=== PATIENT | male | born 1965 | race Caucasian/White ===

== ENCOUNTER 2017-05-06 15:28 | Outpatient (CLI) | payer OTHER ==
[~2017-05-06 15:28] MED LIST: CETI-1 PO; LISI-222 PO; LORA0.5T PO; MONT10TA21 PO
[2017-05-06] MEDS ORDERED: BUDE10.2 (16:28)
[2017-05-06] MEDS ORDERED: HYDR-565 PO (16:28)
[2017-05-06] MEDS ORDERED: LISI-600 (16:28)
[2017-05-06 16:42] LABS: BASOPHILS % (AUTO) 0.5 % (0-1); EOSINOPHILS # (AUTO) 0.3 X10'3 (0-0.9); EOSINOPHILS % (AUTO) 3.9 % (0-6); LYMPHOCYTES # (AUTO) 2.3 X10'3 (1.1-4.8); LYMPHOCYTES % (AUTO) 29.1 % (21-51); MEAN CORPUSCULAR HEMOGLOBIN 31.8 PG (27.0-31.0); MEAN CORPUSCULAR HGB CONC 34.1 % (33.0-36.5); MEAN CORPUSCULAR VOLUME 93.4 FL (78-98); MEAN PLATELET VOLUME 8.8 FL (7.4-10.4); MONOCYTES # (AUTO) 0.8 X10'3 (0-0.9); MONOCYTES % (AUTO) 10.7 % (2-12); NEUTROPHILS # (AUTO) 4.4 X10'3 (1.8-7.7); NEUTROPHILS % (AUTO) 55.8 % (42-75); PRE OP HEMATOCRIT 43.3 % (42.0-52.0); PRE OP HEMOGLOBIN 14.8 g/dL (14.0-17.9); PRE OP PLATELET COUNT 303 X10'3 (140-440); RED BLOOD COUNT 4.64 X10'6 (4.70-6.10); RED CELL DISTRIBUTION WIDTH 14.7 % (11.5-14.5)
[2017-05-06 16:58] LABS: ALBUMIN 3.4 G/DL (3.4-5.0); ALBUMIN/GLOBULIN RATIO 0.9 (1.1-1.5); ALKALINE PHOSPHATASE 93 IU/L (46-116); BLOOD UREA NITROGEN 11 MG/DL (7-18); CALCIUM 8.7 MG/DL (8.5-10.1); CHLORIDE 107 MMOL/L (99-107); PRE OP ALT 49 U/L (30-65); PRE OP ANION GAP 10 (8-16); PRE OP AST 22 U/L (10-37); PRE OP BILIRUB, TOTAL 0.2 MG/DL (0.0-1.0); PRE OP GLUCOSE 109 MG/DL (70-104); PRE OP POTASSIUM 3.8 MMOL/L (3.4-5.1); PRE OP SODIUM 142 MMOL/L (135-145); TOTAL CARBON DIOXIDE 25.5 MMOL/L (24-32); TOTAL PROTEIN 7.2 G/DL (6.4-8.2); eGFR 70 ML/MIN
== END 2017-05-06 23:59 | disposition home or self-care (01) ==
LOC: PRE-OP 15:28 → EDSTATUS 05-12 13:00
PROVIDERS: ATTEND Orthopaedic Surgery
DX: M17.11 Unilateral primary osteoarthritis, right knee (principal); Z01.810 Encounter for preprocedural cardiovascular examination; Z01.812 Encounter for preprocedural laboratory examination
CPT/HCPCS: 36415; 80053; 85025; 87070; 93005

== ENCOUNTER 2017-09-21 05:27 | Inpatient (IN) | payer OTHER ==
[2017-09-17 12:36] LABS: BASOPHILS # (AUTO) 0.1 X10'3 (0-0.2); BASOPHILS % (AUTO) 0.6 % (0-1); EOSINOPHILS # (AUTO) 0.2 X10'3 (0-0.9); EOSINOPHILS % (AUTO) 2.1 % (0-6); LYMPHOCYTES # (AUTO) 1.4 X10'3 (1.1-4.8); LYMPHOCYTES % (AUTO) 17.2 % (21-51); MEAN CORPUSCULAR HEMOGLOBIN 32.5 PG (27.0-31.0); MEAN CORPUSCULAR HGB CONC 34.1 % (33.0-36.5); MEAN CORPUSCULAR VOLUME 95.3 FL (78-98); MEAN PLATELET VOLUME 9.5 FL (7.4-10.4); MONOCYTES # (AUTO) 0.6 X10'3 (0-0.9); MONOCYTES % (AUTO) 7.6 % (2-12); NEUTROPHILS # (AUTO) 5.8 X10'3 (1.8-7.7); NEUTROPHILS % (AUTO) 72.5 % (42-75); PRE OP HEMATOCRIT 41.6 % (42.0-52.0); PRE OP HEMOGLOBIN 14.2 g/dL (14.0-17.9); PRE OP PLATELET COUNT 308 X10'3 (140-440); RED BLOOD COUNT 4.36 X10'6 (4.70-6.10); RED CELL DISTRIBUTION WIDTH 14.7 % (11.5-14.5)
[2017-09-17 12:55] LABS: CLARITY,URINE CLEAR (Clear); COLOR,URINE YELLOW (Yellow); GLUCOSE, URINE NEGATIVE (Neg); KETONES,URINE NEGATIVE (Neg); LEUKOCYTE ESTERASE ,URINE NEGATIVE (Neg); NITRITES, URINE NEGATIVE (Neg); OCCULT BLOOD,URINE TRACE-INTACT (Neg); PH,URINE 5.5 (4.8-8.0); PROTEIN,URINE NEGATIVE (Neg); UROBILINOGEN,URINE 0.2 E.U/dL (0.2-1.0)
[2017-09-17 12:56] LABS: UA COLLECTION TYPE NON-SPECIFIED
[2017-09-17 12:57] LABS: PRE OP PROTIME 10.3 SECONDS (9.0-12.0)
[2017-09-17 13:07] LABS: BACTERIA,URINE FEW /HPF (Neg); SQUAMOUS EPITHELIAL CELL,UR FEW /LPF (FEW); WBC,URINE 0-4 /HPF (0-4)
[2017-09-17 13:13] LABS: ALBUMIN 3.5 G/DL (3.4-5.0); ALKALINE PHOSPHATASE 111 IU/L (46-116); BLOOD UREA NITROGEN 15 MG/DL (7-18); BUN/CREATININE RATIO 16.9 (5.4-32.0); CALCIUM 8.6 MG/DL (8.5-10.1); CHLORIDE 106 MMOL/L (99-107); CREATININE 0.89 MG/DL (0.60-1.10); PRE OP ALT 42 U/L (30-65); PRE OP ANION GAP 10 (8-16); PRE OP AST 19 U/L (10-37); PRE OP BILIRUB, TOTAL 0.3 MG/DL (0.0-1.0); PRE OP GLUCOSE 141 MG/DL (70-104); PRE OP POTASSIUM 3.7 MMOL/L (3.4-5.1); PRE OP SODIUM 140 MMOL/L (135-145); TOTAL CARBON DIOXIDE 23.9 MMOL/L (24-32); TOTAL PROTEIN 6.9 G/DL (6.4-8.2); eGFR 89 ML/MIN
[~2017-09-21] VITALS: Ht 185.4 cm; Wt 108.9 kg
[2017-09-21] VITALS (20 sets, daily range): BP systolic 104–154; BP diastolic 44–107
[~2017-09-21 05:27] MED LIST changes: +BUDE10.2 INH; -CETI-1 PO; +HYDR-565 PO; -LISI-222 PO; +LISI-600 PO; -LORA0.5T PO; -MONT10TA21 PO; +ringers solution, lacted 1,000 ML IV SCH
[2017-09-21] MEDS ORDERED: tranexamic acid inj. 1,000 MG in normal saline 100ml IV soln 90 ML IV ONE (05:30)
[2017-09-21] MEDS ORDERED: albuterol 2.5 MG/3 ML nebule NEB ONE (05:30)
[2017-09-21] MEDS ORDERED: famotidine 20mg tablet PO ONE (05:30)
[2017-09-21] MEDS ORDERED: oxyCODONE SR 10mg (sust. release) tab -2 tabs (20mg) PO ONE (05:30)
[2017-09-21] MEDS ORDERED: vancomycin inj 1,500 MG in normal saline 300ml IV soln IV ONE (05:30)
[2017-09-21] MEDS ORDERED: metoclopramide 5 mg/ml inj IV ONE (05:30)
[2017-09-21] MEDS ORDERED: celeCOXIB 100mg capsule PO ONE (05:30)
[2017-09-21] MEDS ORDERED: gabapentin 300mg capsule PO ONE (05:30)
[2017-09-21] MEDS ORDERED: Cefazolin 2GM/50ML dext iso,osmotic IVPB IV ONE (05:30)
[2017-09-21] MEDS ORDERED: acetaminophen 325mg tablet PO ONE (05:30)
[2017-09-21] MEDS ORDERED: LIDOcaine 1% (10mg/ml) 2ml vial ONE (05:42)
[2017-09-21] MEDS ORDERED: bisacodyl 10mg suppository rectal RC PRN (06:45)
[2017-09-21] MEDS ORDERED: acetaminophen 325mg tablet PO PRN (06:45)
[2017-09-21] MEDS ORDERED: epiNEPHrine 1 mg/ml inj ONE (06:45)
[2017-09-21] MEDS ORDERED: oxyCODONE/APAP 5-325mg tablet PO PRN (06:45)
[2017-09-21] MEDS ORDERED: magnesium hydroxide 30ml (MOM) UD suspension PO PRN (06:45)
[2017-09-21] MEDS ORDERED: ondansetron/PF 4mg/2ml inj IV PRN ×3 (06:45→08:15)
[2017-09-21] MEDS ORDERED: diphenhydrAMINE 25mg capsule PO PRN ×2 (06:45)
[2017-09-21] MEDS ORDERED: ROPIVAcaine 0.5% (5mg/ml) 30ml vial ONE ×3 (06:45→11:15)
[2017-09-21] MEDS ORDERED: vancomycin 1,000mg inj ONE (06:45)
[2017-09-21] MEDS ORDERED: HYDROmorphone 1 mg/ml syringe IV PRN (06:45)
[2017-09-21] MEDS ORDERED: ketorolac trometh. 30mg/ml inj. ONE (06:45)
[2017-09-21] MEDS ORDERED: cloNIDine hcl/PF 100mcg/ml inj ONE ×2 (06:45→07:11)
[2017-09-21] MEDS ORDERED: diphenhydrAMINE 50 mg/ml inj ONE ×2 (07:07)
[2017-09-21] MEDS ORDERED: tetracaine 1% (10mg/ml) pres. free inj. ONE (07:11)
[2017-09-21] MEDS ORDERED: midazolam 2 mg/2 ml injection ONE ×2 (07:14→07:24)
[2017-09-21] MEDS ORDERED: fentaNYL /PF 50mcg/ml 5ml ampule ONE (07:14)
[2017-09-21] MEDS ORDERED: morphine sulfate /PF 0.5 MG/ML 10mL ampul ONE (07:14)
[2017-09-21] MEDS: ascorbic acid 500mg tablet PO SCH ×2 (08:00→20:14)
[2017-09-21] MEDS ORDERED: non-formulary drug (Budesonide/Formoterol Fumarate (Symbicort 160-4.5 Mcg Inhaler) 1 PUFF) INH SCH (08:00)
[2017-09-21] MEDS: multivitamins, therapeutics tablet PO SCH (08:00)
[2017-09-21] MEDS ORDERED: dexamethasone sod phosphate 4mg/ml inj. ONE (08:08)
[2017-09-21] MEDS ORDERED: propofol inj 20 ML IV ONE ×2 (08:08→08:19)
[2017-09-21] MEDS ORDERED: ringers solution, lacted 1,000 ML IV SCH (08:13)
[2017-09-21] MEDS ORDERED: naloxone 2mg/2ml inj 2 MG in normal saline 500ml IV soln 500 ML IV PRN (08:13)
[2017-09-21] MEDS ORDERED: meperidine/PF 25mg/ml syringe IV PRN ×3 (08:15)
[2017-09-21] MEDS ORDERED: morphine 4 MG/ML inj SYRINge IV PRN ×2 (08:15)
[2017-09-21] MEDS ORDERED: proCHLORperazine 10 MG/2 ml inj IV PRN (08:15)
[2017-09-21] MEDS ORDERED: diphenhydrAMINE 50 mg/ml inj IV PRN (08:15)
[2017-09-21] MEDS ORDERED: LIDOcaine 1%/PF 5ML 10 MG/ML VIAL ONE (08:31)
[2017-09-21] MEDS: albuterol 2.5 MG/3 ML nebule NEB SCH ×4 (12:00→20:25)
[2017-09-21] MEDS: gabapentin 300mg capsule PO SCH ×2 (13:55→20:14)
[2017-09-21] MEDS: potassium cl 20mEq in 1/2 NS 1,000 ML IV SCH ×2 (13:56→20:15)
[2017-09-21] MEDS: cefazolin/dext.iso 2gm/50ml 50 ML IV SCH ×2 (17:54→23:25)
[2017-09-21] MEDS: oxyCODONE/APAP 10/325mg tablet PO PRN ×2 (18:57→23:25)
[2017-09-21] MEDS: sennosides 8.6mg tablet PO SCH (20:14)
[2017-09-21] MEDS: celeCOXIB 100mg capsule PO SCH (20:14)
[2017-09-21] MEDS: budesonide 0.5mg/2ml UD nebule IH SCH (20:25)
[2017-09-22] MEDS: potassium cl 20mEq in 1/2 NS 1,000 ML IV SCH ×3 (01:34→19:24)
[2017-09-22 01:54] VITALS: BP 131/75
[2017-09-22] MEDS: oxyCODONE/APAP 10/325mg tablet PO PRN ×3 (05:30→16:28)
[2017-09-22 06:00] VITALS: BP 149/85
[2017-09-22 06:05] LABS: BASOPHILS % (AUTO) 0.1 % (0-1); EOSINOPHILS # (AUTO) 0.3 X10'3 (0-0.9); EOSINOPHILS % (AUTO) 2.6 % (0-6); HEMATOCRIT 35.1 % (42.0-52.0); HEMOGLOBIN 11.8 g/dl (14.0-17.9); LYMPHOCYTES # (AUTO) 1.1 X10'3 (1.1-4.8); LYMPHOCYTES % (AUTO) 8.8 % (21-51); MEAN CORPUSCULAR HGB CONC 33.5 % (33.0-36.5); MEAN CORPUSCULAR VOLUME 95.4 FL (78-98); MONOCYTES # (AUTO) 0.8 X10'3 (0-0.9); MONOCYTES % (AUTO) 6.3 % (2-12); NEUTROPHILS # (AUTO) 10.4 X10'3 (1.8-7.7); NEUTROPHILS % (AUTO) 82.2 % (42-75); PLATELET COUNT 219 X10'3 (140-440); RED BLOOD COUNT 3.68 X10'6 (4.70-6.10); RED CELL DISTRIBUTION WIDTH 14.8 % (11.5-14.5); WHITE BLOOD COUNT 12.7 X10'3 (4.5-11.0)
[2017-09-22 06:13] LABS: ANION GAP 7 (8-16); CHLORIDE 110 MMOL/L (99-107); POTASSIUM 4.2 MMOL/L (3.5-5.1); SODIUM 140 MMOL/L (135-145); TOTAL CARBON DIOXIDE 23.4 MMOL/L (24-32)
[2017-09-22] MEDS: budesonide 0.5mg/2ml UD nebule IH SCH ×2 (07:01→20:02)
[2017-09-22] MEDS: albuterol 2.5 MG/3 ML nebule NEB SCH ×4 (07:01→20:02)
[2017-09-22] MEDS: lisinopril 20mg tablet PO SCH (07:57)
[2017-09-22] MEDS: ascorbic acid 500mg tablet PO SCH ×2 (07:57→20:32)
[2017-09-22] MEDS: gabapentin 300mg capsule PO SCH ×3 (07:58→20:32)
[2017-09-22] MEDS: aspirin 325mg tablet PO SCH (07:58)
[2017-09-22] MEDS: multivitamins, therapeutics tablet PO SCH (07:58)
[2017-09-22] MEDS: celeCOXIB 100mg capsule PO SCH ×2 (07:59→20:32)
[2017-09-22] MEDS ORDERED: lisinopril 20mg tablet PO SCH (08:00)
[2017-09-22] MEDS: HYDROmorphone 1 mg/ml syringe IV PRN ×4 (08:07→20:33)
[2017-09-22 10:00] VITALS: BP 127/65
[2017-09-22 14:00] VITALS: BP 153/73
[2017-09-22 18:00] VITALS: BP 158/89
[2017-09-22] MEDS: sennosides 8.6mg tablet PO SCH (20:32)
[2017-09-22 22:32] VITALS: BP 165/86
[2017-09-23] MEDS: HYDROmorphone 1 mg/ml syringe IV PRN ×2 (00:30→04:28)
[2017-09-23 05:52] LABS: BASOPHILS % (AUTO) 0.3 % (0-1); EOSINOPHILS # (AUTO) 0.1 X10'3 (0-0.9); EOSINOPHILS % (AUTO) 0.8 % (0-6); HEMATOCRIT 35.7 % (42.0-52.0); HEMOGLOBIN 11.9 g/dl (14.0-17.9); LYMPHOCYTES % (AUTO) 8.3 % (21-51); MEAN CORPUSCULAR HEMOGLOBIN 31.8 PG (27.0-31.0); MEAN CORPUSCULAR HGB CONC 33.3 % (33.0-36.5); MEAN CORPUSCULAR VOLUME 95.6 FL (78-98); MEAN PLATELET VOLUME 9.3 FL (7.4-10.4); MONOCYTES # (AUTO) 1.2 X10'3 (0-0.9); MONOCYTES % (AUTO) 10.2 % (2-12); NEUTROPHILS # (AUTO) 9.6 X10'3 (1.8-7.7); NEUTROPHILS % (AUTO) 80.4 % (42-75); PLATELET COUNT 212 X10'3 (140-440); RED BLOOD COUNT 3.73 X10'6 (4.70-6.10); RED CELL DISTRIBUTION WIDTH 14.5 % (11.5-14.5)
[2017-09-23 06:00] VITALS: BP 180/94
[2017-09-23] MEDS: albuterol 2.5 MG/3 ML nebule NEB SCH ×4 (07:00→19:00)
[2017-09-23] MEDS ORDERED: morphine 5 MG/ML injection IV PRN (07:05)
[2017-09-23] MEDS: multivitamins, therapeutics tablet PO SCH (07:10)
[2017-09-23] MEDS: celeCOXIB 100mg capsule PO SCH ×2 (07:10→19:29)
[2017-09-23] MEDS: lisinopril 20mg tablet PO SCH (07:10)
[2017-09-23] MEDS: ascorbic acid 500mg tablet PO SCH ×2 (07:11→19:29)
[2017-09-23] MEDS: oxyCODONE/APAP 10/325mg tablet PO PRN ×5 (07:11→23:34)
[2017-09-23] MEDS: gabapentin 300mg capsule PO SCH ×3 (07:11→20:58)
[2017-09-23] MEDS: budesonide 0.5mg/2ml UD nebule IH SCH ×2 (07:52→20:00)
[2017-09-23] MEDS: aspirin 325mg tablet PO SCH (08:21)
[2017-09-23] MEDS: morphine 4 MG/ML inj SYRINge IV PRN ×4 (08:21→20:59)
[2017-09-23 10:00] VITALS: BP 161/89
[2017-09-23 18:00] VITALS: BP 128/84
[2017-09-23] MEDS: sennosides 8.6mg tablet PO SCH (21:00)
[2017-09-23 22:00] VITALS: BP 121/66
[2017-09-24] MEDS: oxyCODONE/APAP 10/325mg tablet PO PRN ×3 (03:58→12:25)
[2017-09-24] MEDS: morphine 4 MG/ML inj SYRINge IV PRN ×3 (05:25→13:49)
[2017-09-24 06:00] VITALS: BP 128/80
[2017-09-24 06:33] LABS: BASOPHILS # (AUTO) 0.1 X10'3 (0-0.2); BASOPHILS % (AUTO) 0.5 % (0-1); EOSINOPHILS # (AUTO) 0.3 X10'3 (0-0.9); EOSINOPHILS % (AUTO) 2.8 % (0-6); HEMATOCRIT 36.7 % (42.0-52.0); HEMOGLOBIN 12.4 g/dl (14.0-17.9); LYMPHOCYTES # (AUTO) 1.8 X10'3 (1.1-4.8); LYMPHOCYTES % (AUTO) 14.1 % (21-51); MEAN CORPUSCULAR HEMOGLOBIN 32.5 PG (27.0-31.0); MEAN CORPUSCULAR HGB CONC 33.7 % (33.0-36.5); MEAN CORPUSCULAR VOLUME 96.5 FL (78-98); MEAN PLATELET VOLUME 9.6 FL (7.4-10.4); MONOCYTES # (AUTO) 1.3 X10'3 (0-0.9); NEUTROPHILS # (AUTO) 9.1 X10'3 (1.8-7.7); NEUTROPHILS % (AUTO) 72.6 % (42-75); PLATELET COUNT 238 X10'3 (140-440); RED CELL DISTRIBUTION WIDTH 14.9 % (11.5-14.5); WHITE BLOOD COUNT 12.6 X10'3 (4.5-11.0)
[2017-09-24] MEDS: albuterol 2.5 MG/3 ML nebule NEB SCH ×2 (07:00→11:00)
[2017-09-24] MEDS: lisinopril 20mg tablet PO SCH (08:23)
[2017-09-24] MEDS: gabapentin 300mg capsule PO SCH ×2 (08:23→13:05)
[2017-09-24] MEDS: ascorbic acid 500mg tablet PO SCH (08:23)
[2017-09-24] MEDS: aspirin 325mg tablet PO SCH (08:23)
[2017-09-24] MEDS: celeCOXIB 100mg capsule PO SCH (08:23)
[2017-09-24] MEDS: multivitamins, therapeutics tablet PO SCH (08:24)
[2017-09-24] MEDS: budesonide 0.5mg/2ml UD nebule IH SCH (09:00)
== END 2017-09-24 14:30 | disposition home or self-care (01) | DRG 470 ==
LOC: PAS IN 05:27 → EDSTATUS 07:30 → ORTHO 4S 11:19
PROVIDERS: ADMIT Orthopaedic Surgery; ATTEND Orthopaedic Surgery
PROC: 3E0T3BZ Introduction of Anesthetic Agent into Peripheral Nerves and Plexi, Percutaneous Approach (ICD-10-PCS; 2017-09-21)
PROC: 0SRC0J9 Replacement of Right Knee Joint with Synthetic Substitute, Cemented, Open Approach (ICD-10-PCS; principal; 2017-09-21 07:07)
DX: M17.11 Unilateral primary osteoarthritis, right knee (principal); M25.761 Osteophyte, right knee; M21.161 Varus deformity, not elsewhere classified, right knee; I10 Essential (primary) hypertension; J45.909 Unspecified asthma, uncomplicated; E66.9 Obesity, unspecified; F17.200 Nicotine dependence, unspecified, uncomplicated; Z79.51 Long term (current) use of inhaled steroids; Z79.82 Long term (current) use of aspirin; Z79.899 Other long term (current) drug therapy; Z68.31 Body mass index [BMI] 31.0-31.9, adult
CPT/HCPCS: 36415; 71046; 73560; 80051; 80053; 81001; 85025; 85610; 85730; 86885; 86900; 86901; 87070; 94640; 94760; 97110; 97116; 97161; 97530; A6455; A7000; C1713; C1758; C1776; J0171; J0690; J0735; J1100; J1170; J1200; J1885; J2001; J2250; J2270; J2274; J2704; J2765; J2795; J3010; J3370; J3490; J7030; J7120; J7626; Q0163

== ENCOUNTER 2018-01-04 05:25 | Inpatient (IN) | payer MEDICAID ==
[2017-12-29 16:39] LABS: BASOPHILS # (AUTO) 0.1 X10'3 (0-0.2); BASOPHILS % (AUTO) 0.5 % (0-1); EOSINOPHILS # (AUTO) 0.2 X10'3 (0-0.9); EOSINOPHILS % (AUTO) 2.1 % (0-6); LYMPHOCYTES # (AUTO) 2.1 X10'3 (1.1-4.8); LYMPHOCYTES % (AUTO) 18.3 % (21-51); MEAN CORPUSCULAR HEMOGLOBIN 29.4 PG (27.0-31.0); MEAN CORPUSCULAR HGB CONC 32.4 % (33.0-36.5); MEAN CORPUSCULAR VOLUME 90.8 FL (78-98); MEAN PLATELET VOLUME 9.4 FL (7.4-10.4); MONOCYTES # (AUTO) 0.8 X10'3 (0-0.9); MONOCYTES % (AUTO) 6.6 % (2-12); NEUTROPHILS # (AUTO) 8.4 X10'3 (1.8-7.7); NEUTROPHILS % (AUTO) 72.5 % (42-75); PRE OP HEMATOCRIT 47.7 % (42.0-52.0); PRE OP HEMOGLOBIN 15.5 g/dL (14.0-17.9); PRE OP PLATELET COUNT 328 X10'3 (140-440); RED BLOOD COUNT 5.26 X10'6 (4.70-6.10); RED CELL DISTRIBUTION WIDTH 14.9 % (11.5-14.5)
[2017-12-29 16:40] LABS: CLARITY,URINE SLIGHTLY CLOUDY (Clear); COLOR,URINE YELLOW (Yellow); GLUCOSE, URINE NEGATIVE (Neg); KETONES,URINE NEGATIVE (Neg); LEUKOCYTE ESTERASE ,URINE TRACE (Neg); NITRITES, URINE NEGATIVE (Neg); OCCULT BLOOD,URINE NEGATIVE (Neg); PROTEIN,URINE NEGATIVE (Neg); UROBILINOGEN,URINE 0.2 E.U/dL (0.2-1.0)
[2017-12-29 16:46] LABS: UA COLLECTION TYPE CLN CATCH MIDSTREAM
[2017-12-29 16:47] LABS: BACTERIA,URINE FEW /HPF (Neg); MUCUS STRANDS FEW /LPF (Neg); RBC,URINE 0-2 /HPF (0-2); SQUAMOUS EPITHELIAL CELL,UR FEW /LPF (FEW); WBC,URINE 0-4 /HPF (0-4)
[2017-12-29 17:00] LABS: ALBUMIN 3.8 G/DL (3.4-5.0); ALKALINE PHOSPHATASE 104 IU/L (46-116); BLOOD UREA NITROGEN 13 MG/DL (7-18); BUN/CREATININE RATIO 12.1 (5.4-32.0); CALCIUM 8.7 MG/DL (8.5-10.1); CHLORIDE 102 MMOL/L (99-107); CREATININE 1.07 MG/DL (0.60-1.10); PRE OP ALT 50 U/L (30-65); PRE OP ANION GAP 10 (8-16); PRE OP AST 26 U/L (10-37); PRE OP BILIRUB, TOTAL 0.3 MG/DL (0.0-1.0); PRE OP GLUCOSE 99 MG/DL (70-104); PRE OP POTASSIUM 3.7 MMOL/L (3.4-5.1); PRE OP SODIUM 139 MMOL/L (135-145); TOTAL CARBON DIOXIDE 27.4 MMOL/L (24-32); TOTAL PROTEIN 7.7 G/DL (6.4-8.2); eGFR 72 ML/MIN
[2018-01-04] VITALS (22 sets, daily range): BP systolic 81–136; BP diastolic 36–88
[~2018-01-04] VITALS: Ht 182.9 cm; Wt 110.4 kg
[~2018-01-04 05:25] MED LIST changes: +HYDR-3972 PO; -HYDR-565 PO
[2018-01-04] MEDS ORDERED: famotidine 20mg tablet PO ONE (05:30)
[2018-01-04] MEDS ORDERED: oxyCODONE SR 10mg (sust. release) tab -2 tabs (20mg) PO ONE (05:30)
[2018-01-04] MEDS ORDERED: metoclopramide 5 mg/ml inj IV ONE (05:30)
[2018-01-04] MEDS ORDERED: gabapentin 300mg capsule PO ONE (05:30)
[2018-01-04] MEDS ORDERED: acetaminophen 325mg tablet PO ONE (05:30)
[2018-01-04] MEDS ORDERED: vancomycin inj 1,500 MG in normal saline 300ml IV soln IV ONE (05:30)
[2018-01-04] MEDS ORDERED: celeCOXIB 100mg capsule PO ONE (05:30)
[2018-01-04] MEDS ORDERED: tranexamic acid inj. 1,000 MG in normal saline 100ml IV soln 90 ML IV ONE (05:30)
[2018-01-04] MEDS ORDERED: LIDOcaine 1% (10mg/ml) 2ml vial ONE (05:51)
[2018-01-04] MEDS: cefazolin/dext.iso 2gm/100 ML IV ONE ×2 (06:12→06:13)
[2018-01-04] MEDS ORDERED: vancomycin 1,000mg inj ONE (06:53)
[2018-01-04] MEDS ORDERED: LIDOcaine 1%/PF 5ML 10 MG/ML VIAL ONE (07:10)
[2018-01-04] MEDS ORDERED: sevoflurane 250ml liquid IH ONE (07:10)
[2018-01-04] MEDS ORDERED: propofol 10mg/ml 20ml vial IV ONE (07:10)
[2018-01-04] MEDS ORDERED: tetracaine 1% (10mg/ml) pres. free inj. ONE (07:14)
[2018-01-04] MEDS ORDERED: oxyCODONE/APAP 5-325mg tablet PO PRN (07:15)
[2018-01-04] MEDS ORDERED: acetaminophen 325mg tablet PO PRN (07:15)
[2018-01-04] MEDS ORDERED: ondansetron/PF 4mg/2ml inj IV PRN ×3 (07:15→08:25)
[2018-01-04] MEDS ORDERED: diphenhydrAMINE 25mg capsule PO PRN ×2 (07:15)
[2018-01-04] MEDS ORDERED: HYDROmorphone 1 mg/ml syringe IV PRN (07:15)
[2018-01-04] MEDS ORDERED: bisacodyl 10mg suppository rectal RC PRN (07:15)
[2018-01-04] MEDS ORDERED: magnesium hydroxide 30ml (MOM) UD suspension PO PRN (07:15)
[2018-01-04] MEDS ORDERED: fentaNYL/PF 50MCG/1 ML 2ML syringe ONE (07:18)
[2018-01-04] MEDS ORDERED: MIDAZolam 5mg/5ml vial ONE (07:18)
[2018-01-04] MEDS ORDERED: morphine /PF 1mg/ml 10ml inj. ONE (07:18)
[2018-01-04] MEDS ORDERED: ketorolac trometh. 30mg/ml inj. ONE (07:46)
[2018-01-04] MEDS: ascorbic acid 500mg tablet PO SCH ×2 (08:00→20:57)
[2018-01-04] MEDS: multivitamins, therapeutics tablet PO SCH (08:00)
[2018-01-04] MEDS: gabapentin 300mg capsule PO SCH ×3 (08:00→20:57)
[2018-01-04] MEDS: lisinopril 20mg tablet PO SCH (08:00)
[2018-01-04] MEDS ORDERED: non-formulary drug (Budesonide/Formoterol Fumarate (Symbicort 160-4.5 Mcg Inhaler) 1 PUFF) INH SCH (08:00)
[2018-01-04] MEDS ORDERED: naloxone 2mg/2ml inj 2 MG in normal saline 500ml IV soln 500 ML IV PRN (08:24)
[2018-01-04] MEDS ORDERED: ringers solution, lacted 1,000 ML IV SCH (08:24)
[2018-01-04] MEDS ORDERED: proCHLORperazine 10 MG/2 ml inj IV PRN (08:25)
[2018-01-04] MEDS ORDERED: meperidine/PF 25mg/ml syringe IV PRN ×3 (08:25)
[2018-01-04] MEDS ORDERED: diphenhydrAMINE 50 mg/ml inj IV PRN (08:25)
[2018-01-04] MEDS ORDERED: morphine 4 MG/ML inj SYRINge IV PRN ×2 (08:25)
[2018-01-04] MEDS: aspirin 325mg tablet PO SCH (08:30)
[2018-01-04] MEDS ORDERED: cefazolin/dext.iso 2gm/100ml 100 ML IV SCH (11:28)
[2018-01-04] MEDS: potassium cl 20mEq in 1/2 NS 1,000 ML IV SCH ×3 (12:43→23:15)
[2018-01-04] MEDS: oxyCODONE/APAP 10/325mg tablet PO PRN ×3 (12:47→20:58)
[2018-01-04] MEDS: morphine 2 MG/ML inj. syringe IV PRN ×3 (14:02→23:09)
[2018-01-04] MEDS: albuterol 2.5 MG/3 ML nebule NEB SCH ×2 (15:16→20:00)
[2018-01-04] MEDS ORDERED: tranexamic acid inj. 1,000 MG in normal saline 100ml IV soln 100 ML IV ONE (15:30)
[2018-01-04] MEDS ORDERED: cefazolin/dext.iso 2gm/50ml 50 ML IV SCH (16:00)
[2018-01-04] MEDS: cefazolin/dext.iso 2gm/100ml 100 ML IV SCH (17:14)
[2018-01-04] MEDS: budesonide 0.5mg/2ml UD nebule IH SCH (20:00)
[2018-01-04] MEDS: sennosides 8.6mg tablet PO SCH (20:58)
[2018-01-05] MEDS: cefazolin/dext.iso 2gm/100ml 100 ML IV SCH ×2 (00:33→07:34)
[2018-01-05] MEDS: oxyCODONE/APAP 10/325mg tablet PO PRN ×6 (01:21→22:14)
[2018-01-05 02:00] VITALS: BP 132/72
[2018-01-05] MEDS: morphine 2 MG/ML inj. syringe IV PRN ×3 (03:19→11:38)
[2018-01-05 06:00] VITALS: BP 134/74
[2018-01-05] MEDS ORDERED: ROPIVAcaine inj 250 MG, CloNIDine/PF inj 80 MCG, epiNEPHrine inj 0.5 MG in normal salin... IU ONE (06:55)
[2018-01-05] MEDS: albuterol 2.5 MG/3 ML nebule NEB SCH ×2 (07:00→11:00)
[2018-01-05] MEDS: gabapentin 300mg capsule PO SCH ×3 (07:32→20:14)
[2018-01-05] MEDS: ascorbic acid 500mg tablet PO SCH ×2 (07:32→20:14)
[2018-01-05] MEDS: lisinopril 20mg tablet PO SCH (07:33)
[2018-01-05] MEDS: multivitamins, therapeutics tablet PO SCH (07:33)
[2018-01-05] MEDS: potassium cl 20mEq in 1/2 NS 1,000 ML IV SCH ×3 (07:34→23:13)
[2018-01-05 07:50] LABS: BASOPHILS % (AUTO) 0.1 % (0-1); EOSINOPHILS # (AUTO) 0.3 X10'3 (0-0.9); EOSINOPHILS % (AUTO) 3.5 % (0-6); HEMATOCRIT 34.7 % (42.0-52.0); HEMOGLOBIN 11.4 g/dl (14.0-17.9); LYMPHOCYTES # (AUTO) 1.1 X10'3 (1.1-4.8); LYMPHOCYTES % (AUTO) 11.8 % (21-51); MEAN CORPUSCULAR HGB CONC 32.9 % (33.0-36.5); MEAN CORPUSCULAR VOLUME 91.1 FL (78-98); MEAN PLATELET VOLUME 9.3 FL (7.4-10.4); MONOCYTES # (AUTO) 1.1 X10'3 (0-0.9); MONOCYTES % (AUTO) 11.9 % (2-12); NEUTROPHILS # (AUTO) 6.9 X10'3 (1.8-7.7); NEUTROPHILS % (AUTO) 72.7 % (42-75); PLATELET COUNT 233 X10'3 (140-440); RED BLOOD COUNT 3.81 X10'6 (4.70-6.10); RED CELL DISTRIBUTION WIDTH 15.3 % (11.5-14.5); WHITE BLOOD COUNT 9.6 X10'3 (4.5-11.0)
[2018-01-05] MEDS: aspirin 325mg tablet PO SCH (08:30)
[2018-01-05] MEDS: budesonide 0.5mg/2ml UD nebule IH SCH (09:00)
[2018-01-05 09:22] LABS: ANION GAP 7 (8-16); CHLORIDE 104 MMOL/L (99-107); POTASSIUM 4.5 MMOL/L (3.5-5.1); SODIUM 139 MMOL/L (135-145)
[2018-01-05] MEDS ORDERED: ASPI-1 PO (09:31)
[2018-01-05 10:00] VITALS: BP 137/67
[2018-01-05 14:00] VITALS: BP 144/77
[2018-01-05] MEDS: HYDROmorphone 1 mg/ml syringe IV PRN ×2 (16:12→20:30)
[2018-01-05 18:00] VITALS: BP 156/87
[2018-01-05] MEDS: sennosides 8.6mg tablet PO SCH (20:14)
[2018-01-05 22:00] VITALS: BP 158/88
[2018-01-06] MEDS: oxyCODONE/APAP 10/325mg tablet PO PRN ×3 (01:44→11:12)
[2018-01-06] MEDS: HYDROmorphone 1 mg/ml syringe IV PRN ×3 (05:02→13:10)
[2018-01-06 06:00] VITALS: BP 124/78
[2018-01-06 06:18] LABS: BASOPHILS # (AUTO) 0.1 X10'3 (0-0.2); BASOPHILS % (AUTO) 1.2 % (0-1); EOSINOPHILS # (AUTO) 0.4 X10'3 (0-0.9); EOSINOPHILS % (AUTO) 3.2 % (0-6); HEMATOCRIT 36.2 % (42.0-52.0); HEMOGLOBIN 11.8 g/dl (14.0-17.9); LYMPHOCYTES # (AUTO) 1.4 X10'3 (1.1-4.8); LYMPHOCYTES % (AUTO) 12.8 % (21-51); MEAN CORPUSCULAR HEMOGLOBIN 29.9 PG (27.0-31.0); MEAN CORPUSCULAR HGB CONC 32.5 % (33.0-36.5); MEAN CORPUSCULAR VOLUME 91.8 FL (78-98); MEAN PLATELET VOLUME 9.6 FL (7.4-10.4); MONOCYTES # (AUTO) 1.5 X10'3 (0-0.9); MONOCYTES % (AUTO) 13.1 % (2-12); NEUTROPHILS # (AUTO) 7.8 X10'3 (1.8-7.7); NEUTROPHILS % (AUTO) 69.7 % (42-75); PLATELET COUNT 272 X10'3 (140-440); RED BLOOD COUNT 3.95 X10'6 (4.70-6.10); RED CELL DISTRIBUTION WIDTH 15.7 % (11.5-14.5); WHITE BLOOD COUNT 11.2 X10'3 (4.5-11.0)
[2018-01-06] MEDS: aspirin 325mg tablet PO SCH (06:57)
[2018-01-06] MEDS: multivitamins, therapeutics tablet PO SCH (07:00)
[2018-01-06] MEDS: gabapentin 300mg capsule PO SCH ×2 (07:00→13:09)
[2018-01-06] MEDS: lisinopril 20mg tablet PO SCH (07:00)
[2018-01-06] MEDS: ascorbic acid 500mg tablet PO SCH (07:00)
[2018-01-06] MEDS: albuterol 2.5 MG/3 ML nebule NEB SCH (08:36)
[2018-01-06] MEDS: budesonide 0.5mg/2ml UD nebule IH SCH (08:36)
[2018-01-06 10:00] VITALS: BP 111/56
== END 2018-01-06 13:45 | disposition home or self-care (01) | DRG 301 ==
LOC: PAS IN 05:25 → EDSTATUS 07:30 → ORTHO 4S 10:45
PROVIDERS: ADMIT Orthopaedic Surgery; ATTEND Orthopaedic Surgery
PROC: 0SR906Z Replacement of Right Hip Joint with Oxidized Zirconium on Polyethylene Synthetic Substitute, Open Approach (ICD-10-PCS; principal; 2018-01-04 07:10)
DX: M16.11 Unilateral primary osteoarthritis, right hip (principal); D62 Acute posthemorrhagic anemia; Z96.651 Presence of right artificial knee joint; J45.909 Unspecified asthma, uncomplicated; I10 Essential (primary) hypertension; Z79.82 Long term (current) use of aspirin; Z79.899 Other long term (current) drug therapy; Z84.89 Family history of other specified conditions; Z72.89 Other problems related to lifestyle
CPT/HCPCS: 36415; 72170; 80051; 80053; 81001; 85025; 86885; 86900; 86901; 87070; 87088; 94640; 94760; 97110; 97116; 97161; 97530; A4615; A7000; C1758; C1776; G0378; J0171; J0690; J0735; J1170; J1885; J2001; J2250; J2270; J2274; J2704; J2765; J2795; J3010; J3370; J3490; J7030; J7120

== ENCOUNTER 2019-10-08 19:13 | Emergency (ER) | payer SELFPAY ==
[~2019-10-08] VITALS: Ht 182.9 cm; Wt 95.3 kg
[~2019-10-08 19:13] MED LIST changes: +ASPI-1 PO; -ringers solution, lacted 1,000 ML IV SCH
[2019-10-08] MEDS ORDERED: cephalexin 250mg capsule PO ONE (21:25)
[2019-10-08] MEDS ORDERED: acetaminophen 325mg tablet PO ONE (21:25)
[2019-10-08] MEDS ORDERED: CEPH-572 PO (21:27)
[2019-10-08 21:41] VITALS: BP 118/78
[2019-10-09] MEDS ORDERED: albuterol 2.5 MG/3 ML nebule NEB ONE ×2 (08:55→12:00)
== END 2019-10-08 21:42 | disposition home or self-care (01) ==
LOC: ER 19:15
DX: M70.20 Olecranon bursitis, unspecified elbow (principal); I10 Essential (primary) hypertension; J45.909 Unspecified asthma, uncomplicated; F41.9 Anxiety disorder, unspecified; Z98.890 Other specified postprocedural states; Z88.2 Allergy status to sulfonamides; Z79.82 Long term (current) use of aspirin; Z79.2 Long term (current) use of antibiotics; Z79.899 Other long term (current) drug therapy; Y93.89 Activity, other specified
CPT/HCPCS: 99283

== ENCOUNTER 2020-01-05 12:12 | Inpatient (IN) | payer OTHER ==
[~2020-01-05] VITALS: Ht 185.4 cm; Wt 122.0 kg
--- NOTE | 2020-01-05 13:35 | NUR ---
Pt requested to stay in his personal clothing rather than getting into a hospital gown.
--- NOTE | 2020-01-05 14:11 | NUR ---
Pt transported to CT scan via w/c at this time.
--- NOTE | 2020-01-05 14:18 | NUR ---
Return from CT scan via w/c. Test results pending.
[2020-01-05 14:31] LABS: BASOPHILS # (AUTO) 0.1 X10'3 (0-0.2); BASOPHILS % (AUTO) 0.3 % (0-1); EOSINOPHILS # (AUTO) 0.1 X10'3 (0-0.9); EOSINOPHILS % (AUTO) 0.5 % (0-6); HEMATOCRIT 39.3 % (42.0-52.0); HEMOGLOBIN 12.7 g/dl (14.0-17.9); LYMPHOCYTES % (AUTO) 4.3 % (21-51); MEAN CORPUSCULAR HEMOGLOBIN 28.6 PG (27.0-31.0); MEAN CORPUSCULAR HGB CONC 32.3 g/dL (33.0-36.5); MEAN CORPUSCULAR VOLUME 88.8 FL (78-98); MEAN PLATELET VOLUME 9.2 FL (7.4-10.4); MONOCYTES # (AUTO) 1.9 X10'3 (0-0.9); MONOCYTES % (AUTO) 7.9 % (2-12); NEUTROPHILS # (AUTO) 21.2 X10'3 (1.8-7.7); PLATELET COUNT 334 X10'3 (140-440); RED BLOOD COUNT 4.42 X10'6 (4.70-6.10); RED CELL DISTRIBUTION WIDTH 15.1 % (11.5-14.5); WHITE BLOOD COUNT 24.3 X10'3 (4.5-11.0)
[2020-01-05 14:47] LABS: ALANINE AMINOTRANSFERASE 37 U/L (12-78); ALBUMIN 3.4 G/DL (3.4-5.0); ALKALINE PHOSPHATASE 110 IU/L (46-116); ANION GAP 6 (8-16); ASPARTATE AMINO TRANSFERASE 21 U/L (10-37); BILIRUBIN,TOTAL 0.8 MG/DL (0.1-1.0); BLOOD UREA NITROGEN 15 MG/DL (7-18); CALCIUM 8.6 MG/DL (8.5-10.1); CHLORIDE 104 MMOL/L (99-107); GLUCOSE 139 MG/DL (70-104); POTASSIUM 4.2 MMOL/L (3.5-5.1); SODIUM 137 MMOL/L (135-145); TOTAL CARBON DIOXIDE 27.5 MMOL/L (24-32); TOTAL PROTEIN 6.9 G/DL (6.4-8.2); eGFR 78 ML/MIN
[2020-01-05 15:01] LABS: TOTAL CELLS COUNTED 100
[2020-01-05 15:02] LABS: LARGE PLATELETS FEW; PLATELET ESTIMATE NORMAL
[2020-01-05] MEDS ORDERED: morphine 4 MG/ML inj SYRINge IV ONE (15:30)
[2020-01-05] MEDS ORDERED: ondansetron/PF 4mg/2ml inj IV ONE (15:30)
[2020-01-05] MEDS ORDERED: HYDR-4353 PO (15:48)
[2020-01-05] MEDS ORDERED: ASPI325T88 PO (15:48)
[2020-01-05] MEDS ORDERED: FERR324T PO (15:48)
[2020-01-05 15:49] LABS: PARTIAL THROMBOPLASTIN TIME 26 SECONDS (22-32)
[2020-01-05] MEDS ORDERED: magnesium 4gm in 100ml NS 100 ML IV PRN (16:15)
[2020-01-05] MEDS ORDERED: potassium Cl 20 mEq SR tablet PO PRN ×2 (16:15)
[2020-01-05] MEDS ORDERED: potassium CL 10mEq/100ml bag 100 ML IV PRN ×2 (16:15)
[2020-01-05] MEDS ORDERED: magnesium Cl slow-release 64mg tablet PO PRN (16:15)
[2020-01-05] MEDS ORDERED: magnesium 2GM in 50ml NS 50 ML IV PRN (16:15)
[2020-01-05] MEDS ORDERED: ondansetron/PF 4mg/2ml inj IV PRN (16:15)
[2020-01-05] MEDS ORDERED: morphine 2 MG/ML inj. syringe IV PRN (16:15)
[2020-01-05] MEDS ORDERED: acetaminophen 325mg tablet PO PRN ×2 (16:15)
[2020-01-05] MEDS ORDERED: HYDROcodone/acetaminophen 5mg/325mg tablet PO PRN (16:15)
--- NOTE | 2020-01-05 16:24 | NUR ---
Pt again asked to get into a hospital gown and he reports he wants to stay in his personal clothing.
[2020-01-05] MEDS ORDERED: iohexol 300mg/ml 100ml inj. ONE (16:29)
[2020-01-05 17:00] LABS: ETHANOL < 0.010 GM/DL (0.0-0.010)
[2020-01-05 18:10] LABS: CLARITY,URINE CLEAR (Clear); COLOR,URINE YELLOW (Yellow); GLUCOSE, URINE NEGATIVE (Neg); KETONES,URINE NEGATIVE (Neg); LEUKOCYTE ESTERASE ,URINE NEGATIVE (Neg); NITRITES, URINE NEGATIVE (Neg); OCCULT BLOOD,URINE LARGE (Neg); PROTEIN,URINE NEGATIVE (Neg); UROBILINOGEN,URINE 0.2 E.U/dL (0.2-1.0)
[2020-01-05 18:12] LABS: UA COLLECTION TYPE CLN CATCH MIDSTREAM
[2020-01-05 18:15] LABS: BACTERIA,URINE NONE SEEN /HPF (Neg); SQUAMOUS EPITHELIAL CELL,UR FEW /LPF (FEW); WBC,URINE 0-4 /HPF (0-4)
[2020-01-05] MEDS: normal saline 1000ml 1,000 ML IV SCH (18:15)
[2020-01-05] MEDS: VANCOmycin 1250MG/NS 250ml Bag 250 ML IV SCH (18:15)
[2020-01-05 18:27] LABS: URINE AMPHETAMINE SCREEN POSITIVE (Neg); URINE BARBITUATE SCREEN NEGATIVE (Neg); URINE BENZODIAZEPINES SCREEN NEGATIVE (Neg); URINE CANNABINOID SCREEN NEGATIVE (Neg); URINE COCAINE SCREEN POSITIVE (Neg); URINE METHADONE SCREEN NEGATIVE (Neg); URINE OPIATE SCREEN POSITIVE (Neg); URINE PHENCYCLIDINE SCREEN NEGATIVE (Neg)
[2020-01-05] MEDS: morphine 2 MG/ML inj. syringe IV PRN (19:19)
--- NOTE | 2020-01-05 19:30 | NUR ---
Received report from Rian FARLEY from ED. Patient came up to the floor via gurney. Patient able to help get into bed. Bed placed in low and locked position. Call light placed within reach and educated on.
[2020-01-05 19:50] VITALS: BP 111/71
[2020-01-05] MEDS: K and/or MAG REPLACEMENT MC SCH (20:00)
[2020-01-05] MEDS: budesonide 0.5mg/2ml UD nebule IH SCH (20:33)
[2020-01-05] MEDS: HYDROcodone/acetaminophen 10/325mg tab PO PRN (20:47)
[2020-01-05 22:00] VITALS: BP 120/66
[2020-01-06] MEDS: piperacillin/tazo 3.375gm/50ml 50 ML IV SCH ×3 (00:30→16:27)
[2020-01-06] MEDS: normal saline 1000ml 1,000 ML IV SCH ×2 (03:10→15:05)
[2020-01-06] MEDS: HYDROcodone/acetaminophen 10/325mg tab PO PRN (03:10)
[2020-01-06] MEDS: morphine 2 MG/ML inj. syringe IV PRN ×5 (04:42→23:13)
[2020-01-06] MEDS: VANCOmycin 1250MG/NS 250ml Bag 250 ML IV SCH ×2 (04:44→17:26)
[2020-01-06 06:09] LABS: BASOPHILS # (AUTO) 0.1 X10'3 (0-0.2); BASOPHILS % (AUTO) 0.4 % (0-1); EOSINOPHILS # (AUTO) 0.4 X10'3 (0-0.9); EOSINOPHILS % (AUTO) 2.5 % (0-6); HEMATOCRIT 34.2 % (42.0-52.0); LYMPHOCYTES # (AUTO) 1.2 X10'3 (1.1-4.8); LYMPHOCYTES % (AUTO) 7.9 % (21-51); MEAN CORPUSCULAR HGB CONC 32.3 g/dL (33.0-36.5); MEAN CORPUSCULAR VOLUME 89.6 FL (78-98); MEAN PLATELET VOLUME 9.3 FL (7.4-10.4); MONOCYTES # (AUTO) 1.1 X10'3 (0-0.9); NEUTROPHILS # (AUTO) 12.5 X10'3 (1.8-7.7); NEUTROPHILS % (AUTO) 82.2 % (42-75); PLATELET COUNT 303 X10'3 (140-440); RED BLOOD COUNT 3.81 X10'6 (4.70-6.10); RED CELL DISTRIBUTION WIDTH 15.1 % (11.5-14.5); WHITE BLOOD COUNT 15.2 X10'3 (4.5-11.0)
--- NOTE | 2020-01-06 06:20 | NUR ---
Patient in room ORTHO 4011. I have received report from [facility] and had the opportunity to ask questions and assume patient care.
--- NOTE | 2020-01-06 06:32 | NUR ---
Problems reprioritized. Patient report given, questions answered & plan of care reviewed with Amelia FARLEY.
[2020-01-06 06:38] VITALS: BP 120/67
[2020-01-06 06:57] LABS: ALANINE AMINOTRANSFERASE 30 U/L (12-78); ALBUMIN 2.8 G/DL (3.4-5.0); ALBUMIN/GLOBULIN RATIO 0.8 (1.1-1.5); ALKALINE PHOSPHATASE 91 IU/L (46-116); ANION GAP 7 (8-16); ASPARTATE AMINO TRANSFERASE 19 U/L (10-37); BILIRUBIN,TOTAL 0.7 MG/DL (0.1-1.0); BLOOD UREA NITROGEN 13 MG/DL (7-18); BUN/CREATININE RATIO 13.4 (5.4-32.0); CALCIUM 8.3 MG/DL (8.5-10.1); CHLORIDE 109 MMOL/L (99-107); CREATININE 0.97 MG/DL (0.60-1.10); GLUCOSE 119 MG/DL (70-104); POTASSIUM 4.2 MMOL/L (3.5-5.1); SODIUM 143 MMOL/L (135-145); TOTAL CARBON DIOXIDE 27.1 MMOL/L (24-32); TOTAL PROTEIN 6.2 G/DL (6.4-8.2); eGFR 80 ML/MIN
[2020-01-06] MEDS: nicotine 14mg patch - 24hr TD SCH (08:00)
[2020-01-06] MEDS: K and/or MAG REPLACEMENT MC SCH ×2 (08:00→19:31)
[2020-01-06] MEDS: budesonide 0.5mg/2ml UD nebule IH SCH ×2 (08:00→20:02)
[2020-01-06] MEDS: lisinopril 20mg tablet PO SCH (09:13)
[2020-01-06] MEDS ORDERED: pneumococcal 23-VAL P-sac vacc 25 mcg/0.5ml vial IMVAC ONE (10:00)
[2020-01-06 10:02] VITALS: BP 110/69
--- NOTE | 2020-01-06 15:15 | NUR ---
Pt offered PO pain medication, refused, stating "it doesn't work". Pt states he takes [place] at home and it "doesn't do anything for him.
[2020-01-06 18:00] VITALS: BP 114/68
--- NOTE | 2020-01-06 18:22 | NUR ---
Problems reprioritized. Patient report given, questions answered & plan of care reviewed with Jaymie.
--- NOTE | 2020-01-06 18:30 | NUR ---
Patient in room ORTHO 4011. I have received report from Amelia FARLEY and had the opportunity to ask questions and assume patient care.
--- NOTE | 2020-01-06 21:09 | NUR ---
Patient requesting pneumonia shot to be given upon discharge.
[2020-01-06 22:00] VITALS: BP 116/60
[2020-01-06] MEDS: albuterol 2.5 MG/3 ML nebule NEB PRN (22:50)
[2020-01-07] MEDS: piperacillin/tazo 3.375gm/50ml 50 ML IV SCH ×2 (00:18→08:22)
[2020-01-07] MEDS: normal saline 1000ml 1,000 ML IV SCH (02:14)
[2020-01-07] MEDS: HYDROcodone/acetaminophen 10/325mg tab PO PRN ×2 (02:14→11:11)
[2020-01-07] MEDS: morphine 2 MG/ML inj. syringe IV PRN ×3 (04:00→12:23)
[2020-01-07] MEDS ORDERED: VANCOMYCIN LEVEL IV ONE ×2 (04:30→12:30)
[2020-01-07 05:13] LABS: BASOPHILS % (AUTO) 0.4 % (0-1); EOSINOPHILS # (AUTO) 0.2 X10'3 (0-0.9); HEMATOCRIT 32.7 % (42.0-52.0); HEMOGLOBIN 10.7 g/dl (14.0-17.9); LYMPHOCYTES # (AUTO) 1.3 X10'3 (1.1-4.8); MEAN CORPUSCULAR HEMOGLOBIN 29.8 PG (27.0-31.0); MEAN CORPUSCULAR HGB CONC 32.9 g/dL (33.0-36.5); MEAN CORPUSCULAR VOLUME 90.6 FL (78-98); MONOCYTES % (AUTO) 10.7 % (2-12); NEUTROPHILS # (AUTO) 7.2 X10'3 (1.8-7.7); NEUTROPHILS % (AUTO) 73.9 % (42-75); PLATELET COUNT 283 X10'3 (140-440); RED CELL DISTRIBUTION WIDTH 15.1 % (11.5-14.5); WHITE BLOOD COUNT 9.8 X10'3 (4.5-11.0)
[2020-01-07] MEDS: VANCOmycin 1250MG/NS 250ml Bag 250 ML IV SCH (05:16)
[2020-01-07 05:26] LABS: ALANINE AMINOTRANSFERASE 30 U/L (12-78); ALBUMIN 2.8 G/DL (3.4-5.0); ALBUMIN/GLOBULIN RATIO 0.8 (1.1-1.5); ALKALINE PHOSPHATASE 86 IU/L (46-116); ANION GAP 6 (8-16); ASPARTATE AMINO TRANSFERASE 14 U/L (10-37); BILIRUBIN,TOTAL 0.3 MG/DL (0.1-1.0); BLOOD UREA NITROGEN 9 MG/DL (7-18); BUN/CREATININE RATIO 10.6 (5.4-32.0); CHLORIDE 109 MMOL/L (99-107); CREATININE 0.85 MG/DL (0.60-1.10); GLUCOSE 125 MG/DL (70-104); MAGNESIUM 1.9 MG/DL (1.5-2.4); POTASSIUM 4.1 MMOL/L (3.5-5.1); SODIUM 141 MMOL/L (135-145); TOTAL CARBON DIOXIDE 26.3 MMOL/L (24-32); TOTAL PROTEIN 6.1 G/DL (6.4-8.2); VANCOMYCIN,TROUGH 8.5 UG/ML (6.0-14.0); eGFR > 90 ML/MIN
--- NOTE | 2020-01-07 06:28 | NUR ---
Problems reprioritized. Patient report given, questions answered & plan of care reviewed with Lisette FARLEY.
[2020-01-07 07:14] VITALS: BP 154/75
[2020-01-07] MEDS: albuterol 2.5 MG/3 ML nebule NEB PRN (07:54)
[2020-01-07] MEDS: budesonide 0.5mg/2ml UD nebule IH SCH (07:54)
[2020-01-07] MEDS: K and/or MAG REPLACEMENT MC SCH (08:00)
[2020-01-07] MEDS: nicotine 14mg patch - 24hr TD SCH (08:00)
[2020-01-07] MEDS: lisinopril 20mg tablet PO SCH (08:21)
[2020-01-07] MEDS ORDERED: iohexol 300mg/ml 100ml inj. ONE (11:20)
[2020-01-07 12:47] VITALS: BP 133/66
[2020-01-07] MEDS ORDERED: vancomycin/NS 1 GM ADD-VANTAGE 250 ML X 1 DOSE IV SCH (13:00)
[2020-01-07] MEDS ORDERED: lactobacillus rhamnosus 10,000 MMU CELLS/CAPSULE PO SCH (20:00)
== END 2020-01-07 14:10 | disposition home or self-care (01) | DRG 183 ==
LOC: ER 12:13 → ED HOLD 16:11 → EDBEDREQ 18:29 → ORTHO 4S 19:29
PROVIDERS: ADMIT Internal Medicine; ATTEND Internal Medicine
PROC: BW211ZZ Computerized Tomography (CT Scan) of Abdomen and Pelvis using Low Osmolar Contrast (ICD-10-PCS; 2020-01-05)
PROC: 3E0234Z Introduction of Serum, Toxoid and Vaccine into Muscle, Percutaneous Approach (ICD-10-PCS; principal; 2020-01-06)
PROC: BW251ZZ Computerized Tomography (CT Scan) of Chest, Abdomen and Pelvis using Low Osmolar Contrast (ICD-10-PCS; 2020-01-07)
DX: S22.42XA Multiple fractures of ribs, left side, initial encounter for closed fracture (principal); J18.9 Pneumonia, unspecified organism; S37.012A Minor contusion of left kidney, initial encounter; R04.2 Hemoptysis; J21.9 Acute bronchiolitis, unspecified; S05.11XA Contusion of eyeball and orbital tissues, right eye, initial encounter; I10 Essential (primary) hypertension; J45.909 Unspecified asthma, uncomplicated; Y04.8XXA Assault by other bodily force, initial encounter; F41.9 Anxiety disorder, unspecified; Z20.828 Contact with and (suspected) exposure to other viral communicable diseases; F17.220 Nicotine dependence, chewing tobacco, uncomplicated; F14.10 Cocaine abuse, uncomplicated; F15.10 Other stimulant abuse, uncomplicated; F11.10 Opioid abuse, uncomplicated; N28.89 Other specified disorders of kidney and ureter; Z23 Encounter for immunization; Y93.89 Activity, other specified; Y92.89 Other specified places as the place of occurrence of the external cause; Y99.8 Other external cause status; Z88.2 Allergy status to sulfonamides
CPT/HCPCS: 36415; 71046; 71250; 71260; 74177; 80053; 80202; 80305; 80320; 81001; 83605; 83735; 85007; 85025; 85610; 85730; 86885; 86900; 86901; 87040; 87081; 87635; 93005; 94640; 94760; 96374; 96375; 97161; 97530; 99285; C9803; G0378; J2270; J2405; J2543; J3370; J7030; J7626; Q9967

== ENCOUNTER 2021-11-07 23:45 | Emergency (ER) | payer OTHER ==
[~2021-11-07] VITALS: Ht 185.4 cm; Wt 113.6 kg
[~2021-11-07 23:45] MED LIST changes: -ASPI-1 PO; +ASPI325T88 PO; -HYDR-3972 PO; +HYDR-4353 PO; -LISI-600 PO; +LISI20TA28 PO
[2021-11-07 23:51] VITALS: BP 159/114
[2021-11-08 02:35] LABS: CLARITY,URINE CLOUDY (Clear); COLOR,URINE YELLOW (Yellow); GLUCOSE, URINE NEGATIVE (Neg); KETONES,URINE NEGATIVE (Neg); LEUKOCYTE ESTERASE ,URINE LARGE (Neg); NITRITES, URINE POSITIVE (Neg); OCCULT BLOOD,URINE MODERATE (Neg); PROTEIN,URINE 30 mg/dl (Neg); UROBILINOGEN,URINE 0.2 E.U/dL (0.2-1.0)
[2021-11-08 02:49] LABS: UA COLLECTION TYPE NON-SPECIFIED
[2021-11-08 02:56] LABS: WBC,URINE TNTC /HPF (0-4)
[2021-11-08 02:57] LABS: BACTERIA,URINE 3+ /HPF (Neg); SQUAMOUS EPITHELIAL CELL,UR FEW /LPF (FEW); WBC CLUMPS,URINE MODERATE /HPF (NEGATIVE)
== END 2021-11-08 04:34 | disposition left against medical advice (07) ==
LOC: ER 23:46
DX: N20.0 Calculus of kidney (principal); Z53.21 Procedure and treatment not carried out due to patient leaving prior to being seen by health care provider
CPT/HCPCS: 81001; 87088

== ENCOUNTER 2022-09-27 12:01 | Emergency (ER) | payer OTHER ==
[~2022-09-27] VITALS: Ht 182.9 cm; Wt 113.6 kg
--- NOTE | 2022-09-27 13:31 | NUR ---
BREAK RELIEF FOR LUNCH. PT A/OX4. ABLE TO MAKE HIS NEEDS KNOWN. PT ON [place] HOB ELEVATED. RR EVEN AND UNLABORED.
[2022-09-27] MEDS ORDERED: ipratropium/albuterol 3ml nebule NEB PRN (14:35)
[2022-09-27] MEDS ORDERED: morphine 2 MG/ML inj. syringe IV ONE (14:55)
[2022-09-27 14:59] LABS: BASOPHILS % (AUTO) 0.4 % (0-1); EOSINOPHILS # (AUTO) 0.3 X10'3 (0-0.9); EOSINOPHILS % (AUTO) 2.6 % (0-6); HEMATOCRIT 39.1 % (42.0-52.0); HEMOGLOBIN 12.7 g/dl (14.0-17.9); LYMPHOCYTES # (AUTO) 0.8 X10'3 (1.1-4.8); LYMPHOCYTES % (AUTO) 8.4 % (21-51); MEAN CORPUSCULAR HEMOGLOBIN 30.7 PG (27.0-31.0); MEAN CORPUSCULAR HGB CONC 32.5 g/dL (33.0-36.5); MEAN CORPUSCULAR VOLUME 94.5 FL (78-98); MEAN PLATELET VOLUME 8.7 FL (7.4-10.4); MONOCYTES # (AUTO) 0.8 X10'3 (0-0.9); MONOCYTES % (AUTO) 8.2 % (2-12); NEUTROPHILS # (AUTO) 7.8 X10'3 (1.8-7.7); NEUTROPHILS % (AUTO) 80.4 % (42-75); PLATELET COUNT 249 X10'3 (140-440); RED BLOOD COUNT 4.13 X10'6 (4.70-6.10); RED CELL DISTRIBUTION WIDTH 16.9 % (11.5-14.5); WHITE BLOOD COUNT 9.7 X10'3 (4.5-11.0)
[2022-09-27] MEDS ORDERED: CefTRIAXone 2gm/D5W 50ml BAG 50 ML IV ONE (15:05)
[2022-09-27] MEDS ORDERED: CefTRIAXone 2gm/D5W 50ml BAG 50 ML IV SCH (15:05)
[2022-09-27] MEDS ORDERED: CEPH500C2 PO (15:08)
[2022-09-27] MEDS ORDERED: IBUP-1984 PO (15:09)
[2022-09-27] MEDS ORDERED: normal saline 1000ml 1,000 ML IV ONE (15:20)
[2022-09-27 15:25] LABS: ALANINE AMINOTRANSFERASE 48 U/L (12-78); ALKALINE PHOSPHATASE 156 IU/L (46-116); ANION GAP 9 (8-16); ASPARTATE AMINO TRANSFERASE 26 U/L (10-37); BILIRUBIN,TOTAL 0.4 MG/DL (0.1-1.0); BLOOD UREA NITROGEN 9 MG/DL (7-18); BUN/CREATININE RATIO 9.6 (10.0-20.0); CALCIUM 8.7 MG/DL (8.5-10.1); CHLORIDE 102 MMOL/L (99-107); CREATININE 0.94 MG/DL (0.60-1.10); GLUCOSE 217 MG/DL (70-104); POTASSIUM 3.2 MMOL/L (3.5-5.1); SODIUM 139 MMOL/L (135-145); TOTAL CARBON DIOXIDE 27.7 MMOL/L (24-32); TOTAL PROTEIN 6.6 G/DL (6.4-8.2); eCRCL 94 ML/MIN; eGFR 82 ML/MIN
[2022-09-27 15:32] LABS: ALBUMIN 2.9 G/DL (3.4-5.0); ALBUMIN/GLOBULIN RATIO 0.8 (1.1-1.5)
[2022-09-27] MEDS ORDERED: TETanus/Pertussis (Acell)/Diphther VAC/PF (Tdap-Adult) 0.5ml syringe IMVAC ONE (16:05)
[2022-09-27 16:59] VITALS: PULSE 86; RESP 16; O2SAT 94
[2022-09-27] MEDS ORDERED: bacitracin 15gm ointment TP ONE (17:05)
[2022-09-27 17:06] VITALS: PULSE 87; RESP 16; O2SAT 97
[2022-09-27 17:18] VITALS: PULSE 94; TEMP 97.9
[2022-09-27 18:08] VITALS: BP 132/84; RESP 16; O2SAT 98
== END 2022-09-27 18:09 | disposition home or self-care (01) ==
LOC: ER 12:02
DX: M71.562 Other bursitis, not elsewhere classified, left knee (principal); I10 Essential (primary) hypertension; J44.9 Chronic obstructive pulmonary disease, unspecified; Z88.2 Allergy status to sulfonamides; Z79.82 Long term (current) use of aspirin; Z79.2 Long term (current) use of antibiotics; Z79.899 Other long term (current) drug therapy
CPT/HCPCS: 36415; 80053; 83605; 84145; 85025; 87040; 90471; 90715; 94640; 96365; 96366; 96375; 99284; J0696; J2270; J7030; 94760; A6258; A6449